=== PATIENT | female | born 1980 | race Caucasian/White ===

== ENCOUNTER 2018-02-12 08:22 | Emergency (ER) | payer OTHER ==
[~2018-02-12] VITALS: Ht 165.1 cm; Wt 77.1 kg
[~2018-02-12 08:22] MED LIST: ACETAMINOPHEN-1 EAC1 PO; CARISOPRODOL 3350 MG PO; CIPROFLOXACIN500 M1 PO; HYDROCODON-ACE1 EAC7 PO; MEDROLDOSEPACK PO; NAPROSYN375 MG PO; NORCO 5-325 TA1 EACH PO; PROMETHAZINE D480 ML PO; TESSALON PERLE100 MG PO; ZOFRAN4 MG PO; ZPAK PO
[2018-02-12] MEDS ORDERED: MEDROLDOSEPACK PO (08:43)
[2018-02-12] MEDS ORDERED: AZITHROMYCIN 2250 MG PO (08:43)
[2018-02-12] MEDS ORDERED: DUONEB 2.5-0.5 M3 ML INH (08:43)
[2018-02-12 08:50] VITALS: BP 145/84
== END 2018-02-12 08:50 | disposition home or self-care (01) ==
LOC: M.ERS 08:22
DX: J40 Bronchitis, not specified as acute or chronic (principal); F17.210 Nicotine dependence, cigarettes, uncomplicated

== ENCOUNTER 2018-07-04 17:02 | Emergency (ER) | payer OTHER ==
[~2018-07-04] VITALS: Ht 165.1 cm; Wt 77.1 kg
[~2018-07-04 17:02] MED LIST changes: +AZITHROMYCIN 2250 MG PO; +DUONEB 2.5-0.5 M3 ML INH
[2018-07-04 18:09] LABS: INFLUENZA B ANTIGEN None Detected (None Detect)
[2018-07-04] MEDS ORDERED: OSELB75 PO (18:12)
[2018-07-04] MEDS ORDERED: NABUMETONE 750750 M1 PO (18:16)
[2018-07-04 18:26] VITALS: BP 113/77
== END 2018-07-04 18:27 | disposition home or self-care (01) ==
LOC: M.ERS 17:02
PROVIDERS: Nurse Practitioner Family
DX: J09.X2 Influenza due to identified novel influenza A virus with other respiratory manifestations (principal); F17.210 Nicotine dependence, cigarettes, uncomplicated; Z98.890 Other specified postprocedural states

== ENCOUNTER 2020-10-24 19:51 | Emergency (ER) | payer OTHER ==
[~2020-10-24] VITALS: Ht 299.7 cm; Wt 72.6 kg
[~2020-10-24 19:51] MED LIST changes: +NABUMETONE 750750 M1 PO; +OSELB75 PO
[2020-10-24 20:45] LABS: ABSOLUTE EOSINOPHILS 0.2 thou/uL (0.0-0.7); ABSOLUTE LYMPHOCYTES 1.1 thou/uL (0.8-5.3); ABSOLUTE MONOCYTES 0.4 thou/uL (0.0-1.2); ABSOLUTE NEUTROPHILS 6.4 thou/uL (1.6-8.1); BASOPHILS 0.5 %; EOSINOPHILS 2.2 %; HEMATOCRIT 40.9 % (37.0-47.0); HEMOGLOBIN 13.8 gm/dL (12.0-15.0); LYMPHOCYTES 13.7 %; MCH 29.5 pg (26.0-34.0); MCHC 33.7 g/dL (28.0-37.0); MCV 87.6 fL (80.0-100.0); MONOCYTES 5.4 %; MPV 6.8 fl. (7.2-11.1); NUCLEATED RBCS 0 /100WBC; PLATELET COUNT* 274 thou/uL (150-400); POLYS 78.2 %; RBC 4.66 mil/uL (4.20-5.00); RDW-CV 13.5 % (10.5-14.5); WBC 8.2 thou/uL (4.0-11.0)
[2020-10-24 21:00] LABS: CALCIUM 8.7 mg/dL (8.5-10.1); CREATININE 0.7 mg/dL (0.6-1.3); POTASSIUM 3.8 mmol/L (3.5-5.1)
[2020-10-24 21:05] LABS: ALBUMIN 3.3 g/dL (3.4-5.0); TOTAL BILIRUBIN 0.5 mg/dL (<0.1-1.0); TOTAL PROTEIN 7.2 g/dL (6.4-8.2)
[2020-10-24 21:18] LABS: URINE BILIRUBIN NEGATIVE (Negative); URINE BLOOD 1+ (Negative); URINE CLARITY CLEAR; URINE COLOR YELLOW; URINE GLUCOSE-RANDOM NEGATIVE (Negative); URINE KETONES NEGATIVE (Negative); URINE LEUKOCYTES-REFLEX NEGATIVE (Negative); URINE NITRITE-REFLEX NEGATIVE (Negative); URINE PROTEIN NEGATIVE (Negative); URINE SPECIFIC GRAVITY 1.025 (1.005-1.030)
[2020-10-24 21:25] LABS: SQUAMOUS >10 Many /LPF (0-3)
[2020-10-24 21:26] LABS: BACTERIA-REFLEX 1-9 Few /HPF (None Seen); CASTS None Seen /LPF (None Seen); CRYSTALS None Seen /LPF (None Seen); MUCUS None Seen strn/LPF (None Seen); URINE RBC 0-2 Rare /HPF (0-2)
[2020-10-24 21:27] LABS: URINE WBC-REFLEX None Seen /HPF (0-5)
[2020-10-24] MEDS ORDERED: APAP W/CODEINE1 TA2 PO (21:30)
[2020-10-24] MEDS ORDERED: VISTARIL 25 MG25 M1 PO (21:30)
[2020-10-24 21:42] LABS: INFLUENZA A ANTIGEN Negative (Negative); INFLUENZA B ANTIGEN Negative (Negative)
[2020-10-24 23:57] VITALS: BP 119/67
== END 2020-10-24 23:57 | disposition home or self-care (01) ==
LOC: M.ERS 19:51
PROVIDERS: Physician Assistant
DX: F41.9 Anxiety disorder, unspecified (principal); F17.210 Nicotine dependence, cigarettes, uncomplicated; Z98.890 Other specified postprocedural states

== ENCOUNTER 2021-08-04 19:55 | Emergency (ER) | payer OTHER ==
[~2021-08-04] VITALS: Ht 165.1 cm; Wt 70.3 kg
[~2021-08-04 19:55] MED LIST changes: +APAP W/CODEINE1 TA2 PO; +VISTARIL 25 MG25 M1 PO
[2021-08-04] MEDS ORDERED: DECADRON6 MG PO (20:35)
[2021-08-04 20:57] VITALS: BP 142/70
== END 2021-08-04 20:58 | disposition home or self-care (01) ==
LOC: M.ERS 19:55
DX: U07.1 COVID-19 (principal); F17.210 Nicotine dependence, cigarettes, uncomplicated; Z98.890 Other specified postprocedural states